=== PATIENT | female | born 1985 | race Caucasian/White ===

== ENCOUNTER 2017-02-24 22:31 | Emergency (ER) | payer MEDICAID ==
[~2017-02-24] VITALS: Ht 165.1 cm; Wt 54.5 kg
[2017-02-24 22:33] VITALS: BP 124/87
[2017-02-24] MEDS ORDERED: ACETAMINOPHEN 325 MG TABLET ONE (22:50)
[2017-02-24] MEDS ORDERED: ACETAMINOPHEN 325 MG TABLET PO ONE (23:00)
== END 2017-02-25 00:54 | disposition home or self-care (01) ==
LOC: ED 23:13
DX: M76.51 Patellar tendinitis, right knee (principal); G89.11 Acute pain due to trauma; M25.561 Pain in right knee
CPT/HCPCS: 29505

== ENCOUNTER 2017-03-09 06:46 | Emergency (ER) | payer MEDICAID ==
[~2017-03-09] VITALS: Ht 165.1 cm; Wt 56.3 kg
[2017-03-09 06:47] VITALS: BP 110/65
== END 2017-03-09 07:49 | disposition home or self-care (01) ==
LOC: ED 07:44
DX: O99.511 Diseases of the respiratory system complicating pregnancy, first trimester (principal); J02.9 Acute pharyngitis, unspecified; Z3A.01 Less than 8 weeks gestation of pregnancy
CPT/HCPCS: 99283

== ENCOUNTER 2018-09-11 08:42 | Emergency (ER) | payer MEDICAID ==
[~2018-09-11] VITALS: Ht 165.1 cm; Wt 55.0 kg
[2018-09-11 08:52] VITALS: BP 114/75
== END 2018-09-11 09:57 | disposition home or self-care (01) ==
LOC: ED 09:23
DX: B34.9 Viral infection, unspecified (principal)
CPT/HCPCS: 99281

== ENCOUNTER 2018-11-24 06:24 | Emergency (ER) | payer MEDICAID, OTHER ==
[~2018-11-24] VITALS: Ht 165.1 cm; Wt 58.0 kg
[2018-11-24] MEDS ORDERED: MORPHINE SULFATE 4 MG/ML, 1ML IVPush PRN (07:00)
[2018-11-24] MEDS ORDERED: ONDANSETRON 2MG/ML, 2ML IVPush ONE (07:00)
[2018-11-24] MEDS ORDERED: SODIUM CHLORIDE FLUSH 10ML SYR IVF ONE (07:00)
[2018-11-24] MEDS ORDERED: ONDANSETRON 2MG/ML, 2ML ONE (07:08)
[2018-11-24] MEDS ORDERED: MORPHINE SULFATE 4 MG/ML, 1ML ONE (07:08)
[2018-11-24 07:28] LABS: BASOPHILS # (AUTO) 0.03 x10^3/uL (0-0.1); BASOPHILS % (AUTO) 1 % (0-1); EOSINOPHILS # (AUTO) 0.21 x10^3/uL (0-0.4); EOSINOPHILS % (AUTO) 4 % (1-7); LYMPHOCYTES # (AUTO) 1.43 x10^3/uL (1-3.4); LYMPHOCYTES % (AUTO) 25 % (22-44); MD NO; MEAN CORPUSCULAR HEMOGLOBIN 29.8 pg (27.0-34.8); MEAN CORPUSCULAR HGB CONC 33.6 g/dL (32.4-35.8); MEAN CORPUSCULAR VOLUME 88.8 fL (80-100); MEAN PLATELET VOLUME 7.8 fL (7.4-10.4); MONOCYTES # (AUTO) 0.49 x10^3/uL (0.2-0.8); MONOCYTES % (AUTO) 8 % (2-9); NEUTROPHILS # (AUTO) 3.62 x10^3/uL (1.8-6.8); NEUTROPHILS % (AUTO) 63 % (42-75); PLATELET COUNT 263 x10^3/uL (130-400); RED BLOOD COUNT 4.94 x10^6/uL (3.82-5.3); RED CELL DISTRIBUTION WIDTH 12.9 % (9.6-15.2)
[2018-11-24 07:37] LABS: ALBUMIN 3.9 g/dL (3.4-5.0); ANION GAP 6 mmol/L (5-15); CALCIUM 9.2 mg/dL (8.5-10.1); CHLORIDE 107 mmol/L (98-107)
[2018-11-24 08:20] LABS: MICROSCOPIC AUTO
[2018-11-24 08:21] LABS: CULTURE INDICATED? NO
--- NOTE | 2018-11-24 08:29 | NUR ---
Pt transported on gurney to [place]. All safety measures in place.
--- NOTE | 2018-11-24 10:23 | NUR ---
PT. WAS GIVEN DISCHARGE INSTRUCTIONS AND SCRIPTS. PT. VERBALIZED UNDERSTANDING AND WILLINGNESS TO COMPLY. PT.'S IV WAS DCD', CATH TIP INTACT. PRESSURE HELD WITH HEMOSTASIS ACHIEVED. PT. WAS AMBULATORY TO THE DISCHARGE DESK WITH HER S/O. STEADY GAIT.
[2018-11-24 10:26] VITALS: BP 106/78
== END 2018-11-24 10:28 | disposition home or self-care (01) ==
LOC: ED 09:01
DX: N20.1 Calculus of ureter (principal)
CPT/HCPCS: 36415; 74176; 80048; 81001; 82040; 84703; 85025; 96374; 96375; 99284; J2405

== ENCOUNTER 2019-02-19 08:49 | Emergency (ER) | payer OTHER, MEDICAID ==
[~2019-02-19] VITALS: Ht 165.1 cm; Wt 57.0 kg
[2019-02-19 08:58] VITALS: BP 108/75
== END 2019-02-19 10:37 | disposition home or self-care (01) ==
LOC: ED 09:28
DX: M25.531 Pain in right wrist (principal); Z87.891 Personal history of nicotine dependence
CPT/HCPCS: 29125; 73110; 96372; 99283; J1885